=== PATIENT | male | born 1975 | race Caucasian/White ===

== ENCOUNTER 2021-11-13 17:20 | Emergency (ER) | payer BC, SELFPAY ==
--- NOTE | 2021-11-13 17:26 | DI.RAD.S_ITS ---
PROCEDURE: XR CHEST 1V INDICATIONS: chest pain TECHNIQUE: One view of the chest was acquired. COMPARISON: None. FINDINGS: Surgical changes and devices: None. Lungs and pleura: Lungs are clear. No pleural effusions or pneumothorax. Mediastinum: Mediastinal contours appear normal. Heart size is normal. Bones and chest wall: No suspicious bony lesions. Overlying soft tissues appear unremarkable. IMPRESSION: No acute pulmonary process. Dictated by: Laila Rae M.D. on 11/13/2021 at 18:28 Approved by: Laila Rae M.D. on 11/13/2021 at 18:28
[2021-11-13 17:27] VITALS: BP 135/85; PULSE 85; O2SAT 100
[2021-11-13 17:30] VITALS: BP 130/76; PULSE 86; RESP 14; O2SAT 100
[2021-11-13 17:33] VITALS: BP 135/85; PULSE 88; RESP 16; TEMP 36.6; O2SAT 97; BMI 30.9
[2021-11-13 17:53] LABS: HEMOLYSIS < 15 (0-50)
[2021-11-13 17:57] LABS: INR 1.1 (0.9-1.3); Prothrombin Time 11.8 SECONDS (10.1-12.7)
[2021-11-13 17:59] LABS: PTT Partial Thromboplastin Tim 35 SECONDS (26.4-36.2)
[2021-11-13 18:00] VITALS: BP 122/86; PULSE 79; RESP 17; O2SAT 97
[2021-11-13 18:01] LABS: Alanine Aminotransferase 36 IU/L (<50); Albumin 4.6 g/dL (3.5-5.0); Albumin Globulin Ratio 1.4 (1.0-2.8); Alkaline Phosphatase 51 U/L (38-126); Aspartate Aminotransferase 43 IU/L (17-59); BUN Creatinine Ratio 16.7 (6-22); Bilirubin Total 0.4 mg/dL (0.2-1.3); Blood Urea Nitrogen 16 mg/dL (9-20); Calcium 9.4 mg/dL (8.4-10.2); Carbon Dioxide 34 mmol/L (22-32); Chloride 101 mmol/L (98-107); Creatine Kinase 291 U/L (55-170); Estimated Glomerular Filt Rate > 60.0 mL/min (>60); Globulin 3.3 g/dL (1.7-4.1); Glucose 103 mg/dL (70-100); Lipase 122 U/L (23-300); Magnesium 2.2 mg/dL (1.6-2.3); Potassium 3.7 mmol/L (3.4-5.1); Sodium 140 mmol/L (137-145); Total Protein 7.9 g/dL (6.3-8.2)
[2021-11-13 18:13] LABS: Troponin I < 0.012 ng/mL (0.01-0.034)
[2021-11-13 18:16] LABS: CKMB % Relative Index 0.8 % (1.5-5.0); Creatine Kinase MB 2.25 ng/mL (<2.37)
[2021-11-13 18:31] LABS: Add Manual Diff / Slide Review NO; Basophils Absolute Auto 0 /uL (0-100); Basophils Percent Auto 0.5 % (0-2); Eosinophils Absolute Auto 300 /uL (0-450); Eosinophils Percent Auto 2.7 % (2-4); Hematocrit 43.1 % (41-53); Hemoglobin 14.7 g/dL (13.5-17.5); Lymphocytes Absolute Auto 2600 /uL (1100-4500); Lymphocytes Percent Auto 28.1 % (25-40); Mean Corpuscular HGB Conc 34.1 % (30-36); Mean Corpuscular Hemoglobin 29.7 PG (26-34); Mean Corpuscular Volume 87.2 fL (80-100); Monocytes Absolute Auto 900 /uL (0-900); Monocytes Percent Auto 10.1 % (3-14); Neutrophils Absolute Auto 5500 /uL (1500-7000); Neutrophils Percent Auto 58.6 % (50-75); Platelet Count 311 X10^3/uL (150-400); Red Blood Cell Count 4.94 X10^6/uL (4.5-5.9); Red Cell Distribution Width 12.9 % (11.6-14.8); White Blood Cell Count 9.4 X10^3/uL (4.5-11.0)
[2021-11-13 18:43] LABS: TSH w/ Reflex to FT4 1.42 uIU/mL (0.47-4.68)
--- NOTE | 2021-11-13 18:51 | ED.CHESTPAIN ---
HPI - Chest Pain <Aristeo Leon PA-C - Last Filed: 11/13/21 19:59> General Chief Complaint: Chest Pain Stated Complaint: heart palpitations Time Seen by Provider: 11/13/21 17:29 Source: patient Mode of arrival: Family Vehicle Limitations: no limitations History of Present Illness HPI narrative: Patient is a 45-year-old male with a history of heart palpitations presenting to the emergency department today for evaluation of heart palpitations. Patient states that he was walking around at [employer] when he begin to experience a fluttering sensation in his chest. He states that when he began to drive home he also began to experience a tingling sensation in his face. He notes that he has also experienced a sensation as if his ?heart is beating harder? for the past 2 weeks. He explains that he has experienced intermittent episodes of heart palpitations typically associated with physical activity since he was a child. He notes the reason he came to the emergency department today is that this particular case of palpitations appeared to last longer than usual. Patient reports that episode of palpitations lasted approximately 60 seconds, noting that palpitations usually last 20-30 seconds. Denies fever, chills, chest pain, cough, shortness of breath, diaphoresis, jaw pain, pain in the upper extremities, nausea, vomiting, diarrhea, abdominal pain, dysuria, hematuria, or any other concerning symptoms. No further concerns were voiced at this time. Review of Systems <Aristeo Leon PA-C - Last Filed: 11/13/21 19:59> Constitutional Constitutional: Denies chills, Denies fatigue, Denies fever(s), Denies frequent falls, Denies lethargy and Denies weakness Eyes Eyes: Denies loss of vision ENT Ears, Nose, Mouth, and Throat: Denies change in voice, Denies dizziness, Denies neck pain, Denies sore throat and Denies throat swelling Cardiovascular Cardiovascular: Denies chest pain, Reports irregular heart rhythm, Denies lightheadedness, Reports palpitations, Denies dyspnea, Denies dyspnea on exertion and Denies orthopnea Respiratory Respiratory: Denies cough, Denies dyspnea, Denies dyspnea on exertion and Denies wheezing Gastrointestinal Gastrointestinal: Denies abdominal pain, Denies change in bowel habits, Denies diarrhea, Denies nausea and Denies vomiting Genitourinary Genitourinary: Denies hematuria, Denies flank pain, Denies urinary incontinence and Denies urinary urgency Musculoskeletal Musculoskeletal: Denies back pain, Denies muscle weakness, Denies neck pain, Denies numbness and Denies tingling Integumentary/Breasts Skin/Breast: Denies pruritus, Denies erythema, Denies rash and Denies wounds Neurologic Neurologic: Denies behavioral changes, Denies confusion, Denies dizziness, Denies frequent falls, Denies loss of vision, Denies numbness, Denies tingling and Denies weakness Psychiatric Psychiatric: Denies behavioral changes and Denies confusion Endocrine Endocrine: Denies fatigue and Reports palpitations Allergic/Immunologic Allergic/Immunologic: Denies throat swelling and Denies wheezing Patient History <Aristeo Leon PA-C - Last Filed: 11/13/21 19:59> Social History Smoking Status: Never smoker Smoking Status: Never smoker alcohol intake frequency: 0-2 drinks per day Alcohol type: beer and wine Substance Use Type: does not use Exam <Aristeo Leon PA-C - Last Filed: 11/13/21 19:59> Narrative Exam Narrative: GENERAL: 45 year old patient appears stated age. Well-developed patient, in no acute distress. HEAD: Atraumatic. Normocephalic. EYES: Pupils equal round and reactive. Extraocular motions intact. No scleral icterus. No injection or drainage. ENT: Nose without bleeding, purulent drainage. Throat without erythema, tonsillar hypertrophy or exudate. Airway patent. NECK: Trachea midline. Non tender CARDIOVASCULAR: Regular rate and rhythm without murmurs, gallops, or rubs. RESPIRATORY: Clear to auscultation. Breath sounds equal bilaterally. No wheezes, rales, or rhonchi. GASTROINTESTINAL: Abdomen soft, non-tender, nondistended. EXTREMITIES: No edema or joint tenderness. BACK: Nontender without deformity or crepitance. No flank tenderness. NEURO: AOx3. SKIN: No rash or erythema of visible areas Initial Vital Signs Initial Vital Signs: Vital Signs Pulse Rate 85 11/13/21 17:27 Blood Pressure 135/85 11/13/21 17:27 Pulse Oximetry 100 11/13/21 17:27 <Kane Medina DO - Last Filed: 11/14/21 03:12> Initial Vital Signs Initial Vital Signs: Vital Signs Pulse Rate 85 11/13/21 17:27 Blood Pressure 135/85 11/13/21 17:27 Pulse Oximetry 100 11/13/21 17:27 Course <Aristeo Leon PA-C - Last Filed: 11/13/21 19:59> Course Course Narrative: CBC, CMP, lipase, magnesium, troponin, PT/INR, PTT, TSH, chest x-ray, EKG obtained. Patient states that he is comfortable in the emergency department. Orders Ordered: ED Orders 11/13/21 17:26 XR chest 1V Stat EKG-12 Lead Stat 11/13/21 17:33 Complete Blood Count AUTO DIFF Stat Comprehensive Metabolic Panel Stat Lipase Stat Magnesium Stat Partial Thromboplastin Time Stat Prothrombin Time INR Stat TSH w/ Reflex to FT4 Stat Troponin & CK Cardiac Panel Stat Vital Signs Vital signs: Vital Signs - 8 hr 11/13/21 19:46 Pulse Rate 71 Respiratory Rate 22 Blood Pressure 127/78 Pulse Oximetry 97 <Kane Medina DO - Last Filed: 11/14/21 03:12> Orders Ordered: ED Orders 11/13/21 17:26 XR chest 1V Stat EKG-12 Lead Stat 11/13/21 17:33 Complete Blood Count AUTO DIFF Stat Comprehensive Metabolic Panel Stat Lipase Stat Magnesium Stat Partial Thromboplastin Time Stat Prothrombin Time INR Stat TSH w/ Reflex to FT4 Stat Troponin & CK Cardiac Panel Stat Vital Signs Vital signs: Vital Signs - 8 hr 11/13/21 19:46 Pulse Rate 71 Respiratory Rate 22 Blood Pressure 127/78 Pulse Oximetry 97 MDM - Chest Pain <Aristeo Leon PA-C - Last Filed: 11/13/21 19:59> Lab Data Result diagrams: 11/13/21 17:33 11/13/21 17:33 Labs: Lab Results 11/13/21 11/13/21 11/13/21 Range/Units 17:33 17:33 17:33 WBC 9.4 (4.5-11.0) X10^3/uL RBC 4.94 (4.5-5.9) X10^6/uL Hgb 14.7 (13.5-17.5) g/dL Hct 43.1 (41-53) % MCV 87.2 (80-100) fL MCH 29.7 (26-34) PG MCHC 34.1 (30-36) % RDW 12.9 (11.6-14.8) % Plt Count 311 (150-400) X10^3/uL Neut % (Auto) 58.6 (50-75) % Lymph % (Auto) 28.1 (25-40) % [place] % (Auto) 10.1 (3-14) % Eos % (Auto) 2.7 (2-4) % Baso % (Auto) 0.5 (0-2) % Neut # (Auto) 5500 (7047-2289) /uL Lymph # (Auto) 2600 (3428-7466) /uL [place] # (Auto) 900 (0-900) /uL Eos # (Auto) 300 (0-450) /uL Baso # (Auto) 0 (0-100) /uL PT 11.8 (10.1-12.7) SECONDS INR 1.1 (0.9-1.3) APTT 35 (26.4-36.2) SECONDS Sodium 140 (137-145) mmol/L Potassium 3.7 (3.4-5.1) mmol/L Chloride 101 (98-107) mmol/L Carbon Dioxide 34 H (22-32) mmol/L BUN 16 (9-20) mg/dL Creatinine 0.96 (0.66-1.25) mg/dL Estimated GFR > 60.0 (>60) mL/min BUN/Creatinine Ratio 16.7 (6-22) Glucose 103 H (70-100) mg/dL Calcium 9.4 (8.4-10.2) mg/dL Magnesium 2.2 (1.6-2.3) mg/dL Total Bilirubin 0.4 (0.2-1.3) mg/dL AST 43 (17-59) IU/L ALT 36 (<50) IU/L Alkaline Phosphatase 51 (38-126) U/L Total Creatine Kinase 291 H (55-170) U/L CK-MB (CK-2) 2.25 (<2.37) ng/mL CK-MB (CK-2) Rel Index 0.8 L (1.5-5.0) % Troponin I < 0.012 (0.01-0.034) ng/mL Total Protein 7.9 (6.3-8.2) g/dL Albumin 4.6 (3.5-5.0) g/dL Globulin 3.3 (1.7-4.1) g/dL Albumin/Globulin Ratio 1.4 (1.0-2.8) Lipase 122 (23-300) U/L TSH (0.47-4.68) uIU/mL 11/13/21 Range/Units 17:33 WBC (4.5-11.0) X10^3/uL RBC (4.5-5.9) X10^6/uL Hgb (13.5-17.5) g/dL Hct (41-53) % MCV (80-100) fL MCH (26-34) PG MCHC (30-36) % RDW (11.6-14.8) % Plt Count (150-400) X10^3/uL Neut % (Auto) (50-75) % Lymph % (Auto) (25-40) % [place] % (Auto) (3-14) % Eos % (Auto) (2-4) % Baso % (Auto) (0-2) % Neut # (Auto) (4683-8987) /uL Lymph # (Auto) (0378-7640) /uL [place] # (Auto) (0-900) /uL Eos # (Auto) (0-450) /uL Baso # (Auto) (0-100) /uL PT (10.1-12.7) SECONDS INR (0.9-1.3) APTT (26.4-36.2) SECONDS Sodium (137-145) mmol/L Potassium (3.4-5.1) mmol/L Chloride (98-107) mmol/L Carbon Dioxide (22-32) mmol/L BUN (9-20) mg/dL Creatinine (0.66-1.25) mg/dL Estimated GFR (>60) mL/min BUN/Creatinine Ratio (6-22) Glucose (70-100) mg/dL Calcium (8.4-10.2) mg/dL Magnesium (1.6-2.3) mg/dL Total Bilirubin (0.2-1.3) mg/dL AST (17-59) IU/L ALT (<50) IU/L Alkaline Phosphatase (38-126) U/L Total Creatine Kinase (55-170) U/L CK-MB (CK-2) (<2.37) ng/mL CK-MB (CK-2) Rel Index (1.5-5.0) % Troponin I (0.01-0.034) ng/mL Total Protein (6.3-8.2) g/dL Albumin (3.5-5.0) g/dL Globulin (1.7-4.1) g/dL Albumin/Globulin Ratio (1.0-2.8) Lipase (23-300) U/L TSH 1.42 (0.47-4.68) uIU/mL Imaging Data Chest x-ray: Radiologist's Impression: PROCEDURE:? XR CHEST 1V ? INDICATIONS:? chest pain ? TECHNIQUE:? One view of the chest was acquired.? ? COMPARISON:? None. ? FINDINGS:? ? Surgical changes and devices:? None.? ? Lungs and pleura:? Lungs are clear.? No pleural effusions or pneumothorax.? ? Mediastinum:? Mediastinal contours appear normal.? Heart size is normal.? ? Bones and chest wall:? No suspicious bony lesions.? Overlying soft tissues appear unremarkable.? ? IMPRESSION:? No acute pulmonary process. ? ? Dictated by: Laila Rae M.D. on 11/13/2021 at 18:28 ? ? Approved by: Laila Rae M.D. on 11/13/2021 at 18:28 ? ECG Data Interpretation: Normal sinus rhythm, ventricular rate 81 beats per minute, [place] interval of 154 ms MDM Narrative Medical decision making narrative: To consider myocardial infarction versus acute coronary syndrome versus atrial fibrillation versus premature ventricular contractions. Overall physical examination, history, imaging, lab work obtained in the emergency department today returned reassuring. Discussed results of chest x-ray with patient informed but no acute abnormality was identified. Additionally, I discussed lab results with patient informed him that no abnormality was identified that would explain his symptoms. I urged the patient to establish primary care for further evaluation. Patient states that he would like to follow-up with cardiology and states he will do his best to obtain an appointment. Strict return precautions were discussed with the patient prior to the discharge. At this time patient is stable for discharge and states he would like to be discharged home. <Kane Medina DO - Last Filed: 11/14/21 03:12> Lab Data Labs: Lab Results 11/13/21 11/13/21 11/13/21 Range/Units 17:33 17:33 17:33 WBC 9.4 (4.5-11.0) X10^3/uL RBC 4.94 (4.5-5.9) X10^6/uL Hgb 14.7 (13.5-17.5) g/dL Hct 43.1 (41-53) % MCV 87.2 (80-100) fL MCH 29.7 (26-34) PG MCHC 34.1 (30-36) % RDW 12.9 (11.6-14.8) % Plt Count 311 (150-400) X10^3/uL Neut % (Auto) 58.6 (50-75) % Lymph % (Auto) 28.1 (25-40) % [place] % (Auto) 10.1 (3-14) % Eos % (Auto) 2.7 (2-4) % Baso % (Auto) 0.5 (0-2) % Neut # (Auto) 5500 (7488-2283) /uL Lymph # (Auto) 2600 (2005-8713) /uL [place] # (Auto) 900 (0-900) /uL Eos # (Auto) 300 (0-450) /uL Baso # (Auto) 0 (0-100) /uL PT 11.8 (10.1-12.7) SECONDS INR 1.1 (0.9-1.3) APTT 35 (26.4-36.2) SECONDS Sodium 140 (137-145) mmol/L Potassium 3.7 (3.4-5.1) mmol/L Chloride 101 (98-107) mmol/L Carbon Dioxide 34 H (22-32) mmol/L BUN 16 (9-20) mg/dL Creatinine 0.96 (0.66-1.25) mg/dL Estimated GFR > 60.0 (>60) mL/min BUN/Creatinine Ratio 16.7 (6-22) Glucose 103 H (70-100) mg/dL Calcium 9.4 (8.4-10.2) mg/dL Magnesium 2.2 (1.6-2.3) mg/dL Total Bilirubin 0.4 (0.2-1.3) mg/dL AST 43 (17-59) IU/L ALT 36 (<50) IU/L Alkaline Phosphatase 51 (38-126) U/L Total Creatine Kinase 291 H (55-170) U/L CK-MB (CK-2) 2.25 (<2.37) ng/mL CK-MB (CK-2) Rel Index 0.8 L (1.5-5.0) % Troponin I < 0.012 (0.01-0.034) ng/mL Total Protein 7.9 (6.3-8.2) g/dL Albumin 4.6 (3.5-5.0) g/dL Globulin 3.3 (1.7-4.1) g/dL Albumin/Globulin Ratio 1.4 (1.0-2.8) Lipase 122 (23-300) U/L TSH (0.47-4.68) uIU/mL 11/13/21 Range/Units 17:33 WBC (4.5-11.0) X10^3/uL RBC (4.5-5.9) X10^6/uL Hgb (13.5-17.5) g/dL Hct (41-53) % MCV (80-100) fL MCH (26-34) PG MCHC (30-36) % RDW (11.6-14.8) % Plt Count (150-400) X10^3/uL Neut % (Auto) (50-75) % Lymph % (Auto) (25-40) % [place] % (Auto) (3-14) % Eos % (Auto) (2-4) % Baso % (Auto) (0-2) % Neut # (Auto) (0215-0962) /uL Lymph # (Auto) (1798-1701) /uL [place] # (Auto) (0-900) /uL Eos # (Auto) (0-450) /uL Baso # (Auto) (0-100) /uL PT (10.1-12.7) SECONDS INR (0.9-1.3) APTT (26.4-36.2) SECONDS Sodium (137-145) mmol/L Potassium (3.4-5.1) mmol/L Chloride (98-107) mmol/L Carbon Dioxide (22-32) mmol/L BUN (9-20) mg/dL Creatinine (0.66-1.25) mg/dL Estimated GFR (>60) mL/min BUN/Creatinine Ratio (6-22) Glucose (70-100) mg/dL Calcium (8.4-10.2) mg/dL Magnesium (1.6-2.3) mg/dL Total Bilirubin (0.2-1.3) mg/dL AST (17-59) IU/L ALT (<50) IU/L Alkaline Phosphatase (38-126) U/L Total Creatine Kinase (55-170) U/L CK-MB (CK-2) (<2.37) ng/mL CK-MB (CK-2) Rel Index (1.5-5.0) % Troponin I (0.01-0.034) ng/mL Total Protein (6.3-8.2) g/dL Albumin (3.5-5.0) g/dL Globulin (1.7-4.1) g/dL Albumin/Globulin Ratio (1.0-2.8) Lipase (23-300) U/L TSH 1.42 (0.47-4.68) uIU/mL Discharge Plan Departure Patient Disposition: Home Clinical Impression: History of palpitations Instructions: DI for Arrhythmias Activity Restrictions/Additional Instructions: *You have been diagnosed with history of palpitations *What to do: *Please continue to take your regular medications as directed. [ ] New medication prescriptions sent to your pharmacy: [ ] [ ] New medication written as a paper prescription [X] No new medications given *Please follow up with your primary care provider in 2-3 days, call for an appointment. Let them know you were seen in the Emergency Department and that we ask that you be seen in follow up. We will electronically transmit a record of today's note if your PCP is in our system *If you do not have a primary care provider please contact the [facility] Resource line at [phone]. They will ask some questions about your medical history and help get you set up with a doctor in the community. *Return to Emergency Department if you should have any new, worsening or concerning symptoms, such as fever greater than 101 F, shaking chills, chest pain, unexplained sweating, worsening palpitations, persistent vomiting or other bothersome symptoms. <Kane Medina DO - Last Filed: 11/14/21 03:12> Cosign ED Attending Cosignature Attestation: I was immediately available in the department for consultation. This documentation has been reviewed and I agree with assessment and plan. Supervised by Kane Medina DO
[2021-11-13 19:46] VITALS: BP 127/78; PULSE 71; RESP 22; O2SAT 97
== END 2021-11-13 19:49 | disposition home or self-care (01) ==
PROVIDERS: Emergency Medicine; Emergency Provider Physician Assistant
DX: R00.2 Palpitations (principal)
CPT/HCPCS: 36415; 71045; 80053; 82550; 82553; 83690; 83735; 84443; 84484; 85025; 85610; 85730; 93005; 93010; 99284